=== PATIENT | male | born 1950 | race African-American/Black ===

== ENCOUNTER 2017-01-29 15:33 | Emergency (ER) | payer MEDICAID ==
[~2017-01-29] VITALS: Ht 180.3 cm; Wt 63.0 kg
[~2017-01-29 15:33] MED LIST: ALLO100T PO; AMLO5TAB4 PO; CARV25TA47 PO; CLON0.1T PO; Folic Acid PO; METH40TA12 PO; Multivitamins,Ther W-Minerals PO; OMEP20CA10 PO
[2017-01-29] MEDS ORDERED: MORPHINE SULFATE 4 MG/ML CPJ (NOT FOR IM USE) IV STA (15:53)
[2017-01-29] MEDS ORDERED: SODIUM CHLORIDE 0.9% 1,000 ML IV ONE (15:53)
[2017-01-29] MEDS ORDERED: FAMOTIDINE 20MG/2ML VIAL IV STA (15:53)
[2017-01-29] MEDS ORDERED: VISCOUS LIDOCAINE 2% 15 ML UDC PO STA (15:53)
[2017-01-29] MEDS ORDERED: ONDANSETRON HCL 4MG/2ML VIAL IV STA (15:53)
[2017-01-29] MEDS ORDERED: MAGNESIUM/ALUMINUM HYDROXIDE/SIMETHICONE 30ML UDC PO STA (15:53)
[2017-01-29 16:20] LABS: BASOPHILS % 1.2 % (0.0-2.0); DIFFERENTIAL COMMENT 0; EOSINOPHILS % 0.3 % (0.0-5.0); HEMATOCRIT. 30.8 % (42.0-52.0); HEMOGLOBIN. 10.2 g/dL (14.0-18.0); LYMPHOCYTES % 47.6 % (20.0-50.0); MEAN CORPUSCULAR HEMOGLOBIN 33.7 pg (28.0-32.0); MEAN CORPUSCULAR HGB CONC 33.2 g/dL (31.0-37.0); MEAN CORPUSCULAR VOLUME 101.4 fL (80.0-94.0); MEAN PLATELET VOLUME 9.2 fl (7.4-10.4); NEUTROPHILS % 39.9 % (40.0-76.0); PLATELET 141 x1000/uL (130-400); RED BLOOD CELL COUNT 3.04 mill/uL (4.7-6.1); RED CELL DISTRIBUTION WIDTH 13.3 % (11.6-14.6); WHITE BLOOD COUNT 3.9 x1000/uL (4.5-11.0)
[2017-01-29 16:32] LABS: ALANINE AMINOTRANSFERASE 75 IU/L (13-61); ALBUMIN 2.9 g/dL (3.4-5.0); ANION GAP 17; CALCIUM 7.6 mg/dL (8.5-10.1); CARBON DIOXIDE 18 mEq/L (21-32); CHLORIDE 101 mEq/L (98-107); ETHANOL BLOOD 218 mg/dL; INDEX HEMOLYSI 1 (1-3); INDEX ICTERIC 1 (1-4); INDEX LIPEMIC 1 (1-3); LIPASE 222 IU/L (73-393); UREA NITROGEN BLOOD 48 mg/dL (7-21); eGFR 28 mL/min (>60)
[2017-01-29 17:45] LABS: CLARITY URINE CLEAR (CLEAR); COLOR URINE YELLOW (YELLOW); GLUCOSE URINE NEGATIVE (NEGATIVE); KETONES URINE NEGATIVE (NEGATIVE); LEUKOCYTE ESTERASE URINE NEGATIVE (NEGATIVE); NITRITE URINE NEGATIVE (NEGATIVE); OCCULT BLOOD URINE TRACE (NEGATIVE); PROTEIN URINE 1+ (NEGATIVE); SPECIFIC GRAVITY URINE 1.008 (1.005-1.030); UROBILINOGEN URINE 0.2 E.U./dL (0.2-1.0)
[2017-01-29 17:53] LABS: *AMPHETAMINES SCREEN URINE NEGATIVE (NEGATIVE); *BARBITURATES SCREEN URINE NEGATIVE (NEGATIVE); *BENZODIAZEPINES SCREEN URINE NEGATIVE (NEGATIVE); *COCAINE SCREEN URINE NEGATIVE (NEGATIVE); CANNABINOID URINE SCREEN PRESUMTIVE POSITIVE (NEGATIVE); ECSTASY MDMA SCREEN URINE NEGATIVE (NEGATIVE); METHADONE URINE SCREEN PRESUMTIVE POSITIVE (NEGATIVE); OPIATES URINE SCREEN NEGATIVE (NEGATIVE); PHENCYCLIDINE URINE SCREEN NEGATIVE (NEGATIVE)
[2017-01-29 18:09] LABS: BACTERIA URINE TRACE; RBC URINE 0-2 /hpf (0-2); SQUAMOUS EPITHELIAL CELL URINE RARE /lpf (RARE/1+); WBC URINE NONE SEEN /hpf (0-2)
[2017-01-29 19:17] VITALS: BP 135/77
== END 2017-01-29 19:18 | disposition home or self-care (01) ==
LOC: ER 17:24
DX: R10.13 Epigastric pain (principal); R11.2 Nausea with vomiting, unspecified; F10.20 Alcohol dependence, uncomplicated; I10 Essential (primary) hypertension; F17.200 Nicotine dependence, unspecified, uncomplicated; Z87.19 Personal history of other diseases of the digestive system
CPT/HCPCS: 36415; 71010; 74176; 80053; 80305; 81001; 83690; 85025; 93005; 94640; 96361; 96374; 96375; 99285; G0482; J2270; J2405; J3490; J7030; Z7610

== ENCOUNTER 2017-03-10 10:39 | Emergency (ER) | payer MEDICAID ==
[~2017-03-10] VITALS: Ht 170.2 cm; Wt 64.0 kg
[~2017-03-10 10:39] MED LIST changes: -AMLO5TAB4 PO; -CARV25TA47 PO; -CLON0.1T PO; +CLON0.1T14 PO; +COR25 PO; +HYDR-4135 PO; +NIFE60TA64 PO
[2017-03-10] MEDS ORDERED: HYDROCODONE/ACETAMINOPHEN 5/325MG TABLET PO ONE (13:30)
[2017-03-10] MEDS ORDERED: INDOMETHACIN 50MG CAPSULE PO ONE (13:30)
[2017-03-10 14:21] LABS: ALBUMIN 2.2 g/dL (3.4-5.0); ANION GAP 17; CALCIUM 7.9 mg/dL (8.5-10.1); CARBON DIOXIDE 22 mEq/L (21-32); CHLORIDE 102 mEq/L (98-107); INDEX HEMOLYSI 1 (1-3); INDEX ICTERIC 1 (1-4); INDEX LIPEMIC 1 (1-3)
[2017-03-10 14:25] LABS: ALANINE AMINOTRANSFERASE 52 IU/L (13-61); UREA NITROGEN BLOOD 18 mg/dL (7-21); URIC ACID 5.2 mg/dL (2.6-7.2)
[2017-03-10 14:26] LABS: eGFR 43 mL/min (>60)
[2017-03-10 14:27] LABS: BASOPHILS % 0.4 % (0.0-2.0); HEMATOCRIT. 35.3 % (42.0-52.0); HEMOGLOBIN. 12.1 g/dL (14.0-18.0); INR 1.3; LYMPHOCYTES % 14.5 % (20.0-50.0); MEAN CORPUSCULAR HEMOGLOBIN 33.2 pg (28.0-32.0); MEAN CORPUSCULAR HGB CONC 34.3 g/dL (31.0-37.0); MEAN CORPUSCULAR VOLUME 96.8 fL (80.0-94.0); MEAN PLATELET VOLUME 9.6 fl (7.4-10.4); MONOCYTES % 13.4 % (2.0-8.0); NEUTROPHILS % 71.7 % (40.0-76.0); PARTIAL THROMBOPLASTIN TIME 27.6 sec (24.0-34.0); PLATELET 182 x1000/uL (130-400); PROTHROMBIN TIME 13.1 sec; RED BLOOD CELL COUNT 3.65 mill/uL (4.7-6.1); RED CELL DISTRIBUTION WIDTH 15.4 % (11.6-14.6)
[2017-03-10 14:29] LABS: NT PRO B-TYPE NATRIURETIC PEP 4062 pg/mL (5-125)
[2017-03-10 18:35] VITALS: BP 168/97
== END 2017-03-10 18:37 | disposition home or self-care (01) ==
LOC: ER 11:04
DX: M10.9 Gout, unspecified (principal); B19.20 Unspecified viral hepatitis C without hepatic coma; Z79.899 Other long term (current) drug therapy; I10 Essential (primary) hypertension; F17.200 Nicotine dependence, unspecified, uncomplicated
CPT/HCPCS: 36415; 71010; 80053; 83880; 84550; 85025; 85610; 85730; 93005; 93970; 99285; Z7610

== ENCOUNTER 2017-07-09 17:42 | Inpatient (IN) | payer MEDICAID ==
[~2017-07-09] VITALS: Ht 170.2 cm; Wt 54.4 kg
[~2017-07-09 17:42] MED LIST changes: +CLON0.1T PO; -CLON0.1T14 PO
[2017-07-09 19:05] LABS: BASOPHILS % 1.2 % (0.0-2.0); EOSINOPHILS % 0.2 % (0.0-5.0); HEMATOCRIT. 28.4 % (42.0-52.0); HEMOGLOBIN. 9.4 g/dL (14.0-18.0); LYMPHOCYTES % 40.6 % (20.0-50.0); MEAN CORPUSCULAR HEMOGLOBIN 33.9 pg (28.0-32.0); MEAN CORPUSCULAR VOLUME 102.5 fL (80.0-94.0); MEAN PLATELET VOLUME 8.8 fl (7.4-10.4); MONOCYTES % 9.1 % (2.0-8.0); NEUTROPHILS % 48.9 % (40.0-76.0); PLATELET 175 x1000/uL (130-400); RED BLOOD CELL COUNT 2.77 mill/uL (4.7-6.1); RED CELL DISTRIBUTION WIDTH 14.5 % (11.6-14.6)
[2017-07-09] MEDS ORDERED: ASPIRIN 325MG EC TABLET PO ONE (19:15)
[2017-07-09 19:16] LABS: CARBON DIOXIDE 19 mEq/L (21-32); CHLORIDE 107 mEq/L (98-107); INR 1.1; PROTHROMBIN TIME 11.5 sec (9.4-11.6); TROPONIN I < 0.02 ng/mL (0.00-0.04)
[2017-07-09] MEDS ORDERED: NITROGLYCERIN OINT 1GM/INCH UDPKT TD ONE (19:30)
[2017-07-09 22:11] VITALS: BP 140/88
[2017-07-09] MEDS ORDERED: SODIUM CHLORIDE 0.9% 1,000 ML IV SCH (23:10)
[2017-07-09] MEDS ORDERED: IPRATROPIUM/ALBUTEROL 0.5-3(2.5)MG/3ML NEB INH PRN (23:15)
[2017-07-09] MEDS ORDERED: MAGNESIUM/ALUMINUM HYDROXIDE/SIMETHICONE 30ML UDC PO PRN (23:15)
[2017-07-09] MEDS ORDERED: ACETAMINOPHEN 325MG TABLET PO PRN (23:15)
[2017-07-10 00:15] VITALS: BP 160/99
[2017-07-10] MEDS: CLONIDINE 0.1MG TABLET PO PRN (00:19)
[2017-07-10 04:30] VITALS: BP 122/68
[2017-07-10 06:22] LABS: BASOPHILS % 1.1 % (0.0-2.0); EOSINOPHILS % 0.6 % (0.0-5.0); HEMATOCRIT. 26.9 % (42.0-52.0); HEMOGLOBIN. 8.9 g/dL (14.0-18.0); LYMPHOCYTES % 53.3 % (20.0-50.0); MEAN CORPUSCULAR HEMOGLOBIN 33.9 pg (28.0-32.0); MEAN CORPUSCULAR VOLUME 102.2 fL (80.0-94.0); MEAN PLATELET VOLUME 9.5 fl (7.4-10.4); MONOCYTES % 10.4 % (2.0-8.0); NEUTROPHILS % 34.6 % (40.0-76.0); PLATELET 175 x1000/uL (130-400); RED BLOOD CELL COUNT 2.63 mill/uL (4.7-6.1); RED CELL DISTRIBUTION WIDTH 14.4 % (11.6-14.6)
[2017-07-10 07:37] LABS: CREATINE KINASE 48 IU/L (39-308); CREATINE KINASE MB FRACTION < 0.5 ng/mL (0.5-3.6); HDL CHOLESTEROL 43 mg/dL (40-59); LDL CHOLESTEROL 54 mg/dL (5-100); TROPONIN I < 0.02 ng/mL (0.00-0.04)
[2017-07-10 08:00] VITALS: BP 159/89
[2017-07-10] MEDS: FOLIC ACID 1MG TABLET PO SCH (09:26)
[2017-07-10] MEDS: MULTIVITAMINS,THER W-MINERALS TABLET PO SCH (09:26)
[2017-07-10] MEDS: THIAMINE HCL 100MG TABLET PO SCH (09:26)
[2017-07-10] MEDS: METHADONE HCL 10MG TABLET PO SCH (10:39)
[2017-07-10 11:18] LABS: AMYLASE 199 IU/L (25-115)
[2017-07-10 11:35] LABS: CLARITY URINE CLEAR (CLEAR); COLOR URINE YELLOW (YELLOW); GLUCOSE URINE NEGATIVE (NEGATIVE); KETONES URINE NEGATIVE (NEGATIVE); LEUKOCYTE ESTERASE URINE NEGATIVE (NEGATIVE); NITRITE URINE NEGATIVE (NEGATIVE); OCCULT BLOOD URINE TRACE (NEGATIVE); PROTEIN URINE 2+ (NEGATIVE); SPECIFIC GRAVITY URINE 1.014 (1.005-1.030); UROBILINOGEN URINE 0.2 E.U./dL (0.2-1.0)
[2017-07-10] MEDS: DEXT 5%/0.9% NACL 1,000 ML IV SCH ×2 (12:00→21:32)
[2017-07-10] MEDS: PANTOPRAZOLE SODIUM 40 MG/VIAL IV SCH (12:00)
[2017-07-10 12:04] VITALS: BP 153/88
[2017-07-10 12:14] LABS: *AMPHETAMINES SCREEN URINE NEGATIVE (NEGATIVE); *BARBITURATES SCREEN URINE NEGATIVE (NEGATIVE); *BENZODIAZEPINES SCREEN URINE NEGATIVE (NEGATIVE); *COCAINE SCREEN URINE NEGATIVE (NEGATIVE); CANNABINOID URINE SCREEN PRESUMTIVE POSITIVE (NEGATIVE); METHADONE URINE SCREEN PRESUMTIVE POSITIVE (NEGATIVE); OPIATES URINE SCREEN NEGATIVE (NEGATIVE); PHENCYCLIDINE URINE SCREEN NEGATIVE (NEGATIVE)
[2017-07-10] MEDS: NIFEDIPINE XL 30MG TAB PO SCH ×2 (13:38→21:00)
[2017-07-10 16:00] VITALS: BP 147/79
[2017-07-10 16:24] LABS: CREATINE KINASE 48 IU/L (39-308); CREATINE KINASE MB FRACTION 0.6 ng/mL (0.5-3.6); TROPONIN I < 0.02 ng/mL (0.00-0.04)
[2017-07-10] MEDS: HYDRALAZINE HCL 50MG TABLET PO SCH ×2 (18:01→21:32)
[2017-07-10 20:09] VITALS: BP 112/71
[2017-07-10] MEDS: HYDROCODONE/ACETAMINOPHEN 5/325MG TABLET PO PRN (21:30)
[2017-07-11 00:46] VITALS: BP 111/78
[2017-07-11 04:00] VITALS: BP 148/87
[2017-07-11] MEDS: HYDRALAZINE HCL 50MG TABLET PO SCH ×3 (06:00→22:12)
[2017-07-11 07:52] LABS: EOSINOPHILS % 0.4 % (0.0-5.0); HEMATOCRIT. 32.7 % (42.0-52.0); HEMOGLOBIN. 11.2 g/dL (14.0-18.0); LYMPHOCYTES % 50.3 % (20.0-50.0); MEAN CORPUSCULAR HEMOGLOBIN 34.6 pg (28.0-32.0); MEAN CORPUSCULAR VOLUME 101.3 fL (80.0-94.0); MEAN PLATELET VOLUME 9.9 fl (7.4-10.4); MONOCYTES % 6.8 % (2.0-8.0); NEUTROPHILS % 41.5 % (40.0-76.0); PLATELET 191 x1000/uL (130-400); RED BLOOD CELL COUNT 3.23 mill/uL (4.7-6.1); RED CELL DISTRIBUTION WIDTH 14.4 % (11.6-14.6)
[2017-07-11 08:00] VITALS: BP 128/67
[2017-07-11] MEDS: DEXT 5%/0.9% NACL 1,000 ML IV SCH ×3 (08:00→18:00)
[2017-07-11 08:12] LABS: CARBON DIOXIDE 23 mEq/L (21-32); CHLORIDE 105 mEq/L (98-107)
[2017-07-11 08:22] LABS: HDL CHOLESTEROL 51 mg/dL (40-59); LDL CHOLESTEROL 76 mg/dL (5-100); TROPONIN I < 0.02 ng/mL (0.00-0.04)
[2017-07-11] MEDS ORDERED: LIDOCAINE HCL 1% 20ML VIAL (Pyxis) INJ ONE (08:40)
[2017-07-11] MEDS ORDERED: SODIUM BICARBONATE 4% (2.4MEQ) 5ML VIAL IV ONE (08:40)
[2017-07-11] MEDS: MULTIVITAMINS,THER W-MINERALS TABLET PO SCH (08:53)
[2017-07-11] MEDS: METHADONE HCL 10MG TABLET PO SCH (08:53)
[2017-07-11] MEDS: FOLIC ACID 1MG TABLET PO SCH (08:53)
[2017-07-11] MEDS: THIAMINE HCL 100MG TABLET PO SCH (08:53)
[2017-07-11] MEDS: NIFEDIPINE XL 30MG TAB PO SCH ×2 (08:54→22:23)
[2017-07-11] MEDS: PANTOPRAZOLE SODIUM 40 MG/VIAL IV SCH ×2 (08:58→11:42)
[2017-07-11] MEDS: ONDANSETRON HCL 4MG/2ML VIAL IV PRN ×2 (11:42→16:51)
[2017-07-11 12:00] VITALS: BP 142/78
[2017-07-11 16:00] VITALS: BP 170/86
[2017-07-11 17:40] LABS: TOTAL IRON BINDING CAPACITY 288 ug/dL (250-450)
[2017-07-11 17:58] LABS: FERRITIN 409 ng/mL (22-322)
[2017-07-11 18:10] LABS: VITAMIN B12 SERUM 287 pg/mL (211-911)
[2017-07-11 20:00] VITALS: BP 183/88
[2017-07-11] MEDS: HYDROCODONE/ACETAMINOPHEN 5/325MG TABLET PO PRN (22:09)
[2017-07-12] VITALS: BP 188/89
[2017-07-12] MEDS: CLONIDINE 0.1MG TABLET PO PRN ×2 (01:19→01:33)
[2017-07-12 04:00] VITALS: BP 151/78
[2017-07-12] MEDS: ONDANSETRON HCL 4MG/2ML VIAL IV PRN (04:38)
[2017-07-12] MEDS: DEXT 5%/0.9% NACL 1,000 ML IV SCH ×2 (05:02→08:33)
[2017-07-12] MEDS: HYDRALAZINE HCL 50MG TABLET PO SCH ×2 (05:41→12:28)
[2017-07-12 06:41] LABS: BASOPHILS % 0.3 % (0.0-2.0); EOSINOPHILS % 0.5 % (0.0-5.0); HEMOGLOBIN. 8.7 g/dL (14.0-18.0); LYMPHOCYTES % 39.7 % (20.0-50.0); MEAN CORPUSCULAR HEMOGLOBIN 34.3 pg (28.0-32.0); MEAN CORPUSCULAR VOLUME 102.7 fL (80.0-94.0); MEAN PLATELET VOLUME 9.8 fl (7.4-10.4); MONOCYTES % 10.7 % (2.0-8.0); NEUTROPHILS % 48.8 % (40.0-76.0); PLATELET 141 x1000/uL (130-400); RED BLOOD CELL COUNT 2.54 mill/uL (4.7-6.1); RED CELL DISTRIBUTION WIDTH 14.4 % (11.6-14.6)
[2017-07-12 07:49] LABS: CARBON DIOXIDE 24 mEq/L (21-32)
[2017-07-12 08:00] VITALS: BP 134/73
[2017-07-12] MEDS: MULTIVITAMINS,THER W-MINERALS TABLET PO SCH (08:31)
[2017-07-12] MEDS: PANTOPRAZOLE SODIUM 40 MG/VIAL IV SCH (08:31)
[2017-07-12] MEDS: FOLIC ACID 1MG TABLET PO SCH (08:31)
[2017-07-12] MEDS: THIAMINE HCL 100MG TABLET PO SCH (08:32)
[2017-07-12] MEDS: NIFEDIPINE XL 30MG TAB PO SCH (08:32)
[2017-07-12 08:33] VITALS: BP 134/73
[2017-07-12] MEDS: METHADONE HCL 10MG TABLET PO SCH (08:33)
[2017-07-12 08:41] LABS: CHLORIDE 109 mEq/L (98-107)
[2017-07-12] MEDS ORDERED: POTASSIUM CHLORIDE 20MEQ TABLET SR PO NR (12:00)
== END 2017-07-12 14:15 | disposition home or self-care (01) | DRG 282 ==
LOC: ER 17:42 → 6WST 19:39 → EDBEDREQTM 19:43 → EDBEDREQ 19:43 → ENRESERV 19:53
PROVIDERS: ADMIT Internal Medicine; ATTEND Internal Medicine
PROC: 02HV33Z Insertion of Infusion Device into Superior Vena Cava, Percutaneous Approach (ICD-10-PCS; principal; 2017-07-11)
PROC: B5181ZA Fluoroscopy of Superior Vena Cava using Low Osmolar Contrast, Guidance (ICD-10-PCS; 2017-07-11)
PROC: B548ZZA Ultrasonography of Superior Vena Cava, Guidance (ICD-10-PCS; 2017-07-11)
DX: K85.20 Alcohol induced acute pancreatitis without necrosis or infection (principal); I21.4 Non-ST elevation (NSTEMI) myocardial infarction; I50.33 Acute on chronic diastolic (congestive) heart failure; N17.9 Acute kidney failure, unspecified; F11.20 Opioid dependence, uncomplicated; I24.9 Acute ischemic heart disease, unspecified; K86.0 Alcohol-induced chronic pancreatitis; N18.9 Chronic kidney disease, unspecified; F10.10 Alcohol abuse, uncomplicated; R74.0 Nonspecific elevation of levels of transaminase and lactic acid dehydrogenase [LDH]; B18.2 Chronic viral hepatitis C; D53.9 Nutritional anemia, unspecified; I13.0 Hypertensive heart and chronic kidney disease with heart failure and stage 1 through stage 4 chronic kidney disease, or unspecified chronic kidney disease; F17.210 Nicotine dependence, cigarettes, uncomplicated; K29.70 Gastritis, unspecified, without bleeding; Y90.9 Presence of alcohol in blood, level not specified; M10.9 Gout, unspecified; K58.9 Irritable bowel syndrome, unspecified; K57.90 Diverticulosis of intestine, part unspecified, without perforation or abscess without bleeding; F12.90 Cannabis use, unspecified, uncomplicated; D63.1 Anemia in chronic kidney disease; D72.819 Decreased white blood cell count, unspecified; Z79.899 Other long term (current) drug therapy; Z82.49 Family history of ischemic heart disease and other diseases of the circulatory system
CPT/HCPCS: 36415; 36569; 71010; 76937; 77001; 80053; 80061; 80305; 81001; 82150; 82550; 82553; 82607; 82728; 83540; 83550; 83690; 83735; 83880; 84443; 84484; 85025; 85044; 85379; 85610; 93005; 93306; 93970; 99285; C1725; C1893; C9113; J2405; J3490; J7042; J7060

== ENCOUNTER 2017-08-09 08:12 | Inpatient (IN) | payer MEDICAID ==
[~2017-08-09] VITALS: Ht 162.6 cm; Wt 52.2 kg
[2017-08-09] MEDS ORDERED: ONDANSETRON HCL 4MG/2ML VIAL IV STA (08:34)
[2017-08-09] MEDS ORDERED: MORPHINE SULFATE 4 MG/ML CPJ (NOT FOR IM USE) IV STA (08:34)
[2017-08-09] MEDS ORDERED: FAMOTIDINE 20MG/2ML VIAL IV STA (08:34)
[2017-08-09] MEDS ORDERED: SODIUM CHLORIDE 0.9% 1,000 ML IV ONE ×2 (08:34→10:47)
[2017-08-09 09:41] LABS: CARBON DIOXIDE 23 mEq/L (21-32); CHLORIDE 104 mEq/L (98-107); ETHANOL BLOOD < 10 mg/dL
[2017-08-09 09:46] LABS: TROPONIN I < 0.02 ng/mL (0.00-0.04)
[2017-08-09 10:16] LABS: BASOPHILS % 0.7 % (0.0-2.0); EOSINOPHILS % 0.2 % (0.0-5.0); HEMATOCRIT. 36.8 % (42.0-52.0); HEMOGLOBIN. 12.6 g/dL (14.0-18.0); LYMPHOCYTES % 33.3 % (20.0-50.0); MEAN CORPUSCULAR HEMOGLOBIN 33.9 pg (28.0-32.0); MEAN CORPUSCULAR VOLUME 99.5 fL (80.0-94.0); MEAN PLATELET VOLUME 9.9 fl (7.4-10.4); MONOCYTES % 9.1 % (2.0-8.0); NEUTROPHILS % 56.7 % (40.0-76.0); PLATELET 146 x1000/uL (130-400); RED CELL DISTRIBUTION WIDTH 13.4 % (11.6-14.6)
[2017-08-09 10:41] LABS: INR 1.2; PROTHROMBIN TIME 12.4 sec (9.4-11.6)
[2017-08-09] MEDS ORDERED: CLONIDINE 0.2MG TABLET PO ONE (11:15)
[2017-08-09 11:29] LABS: CLARITY URINE CLEAR (CLEAR); COLOR URINE YELLOW (YELLOW); GLUCOSE URINE NEGATIVE (NEGATIVE); KETONES URINE NEGATIVE (NEGATIVE); LEUKOCYTE ESTERASE URINE NEGATIVE (NEGATIVE); NITRITE URINE NEGATIVE (NEGATIVE); OCCULT BLOOD URINE 1+ (NEGATIVE); PROTEIN URINE 2+ (NEGATIVE); SPECIFIC GRAVITY URINE 1.014 (1.005-1.030); UROBILINOGEN URINE 0.2 E.U./dL (0.2-1.0)
[2017-08-09 11:59] LABS: *AMPHETAMINES SCREEN URINE NEGATIVE (NEGATIVE); *BARBITURATES SCREEN URINE NEGATIVE (NEGATIVE); *BENZODIAZEPINES SCREEN URINE NEGATIVE (NEGATIVE); *COCAINE SCREEN URINE NEGATIVE (NEGATIVE); CANNABINOID URINE SCREEN PRESUMTIVE POSITIVE (NEGATIVE); METHADONE URINE SCREEN PRESUMTIVE POSITIVE (NEGATIVE); OPIATES URINE SCREEN PRESUMTIVE POSITIVE (NEGATIVE); PHENCYCLIDINE URINE SCREEN NEGATIVE (NEGATIVE)
[2017-08-09] MEDS ORDERED: HYDRALAZINE HCL 100MG TABLET PO ONE (13:15)
[2017-08-09 14:45] VITALS: BP 186/101
[2017-08-09 14:57] VITALS: BP 186/101
[2017-08-09 16:00] VITALS: BP_SYST 124; BP_SYST 165; BP_DIAS 71; BP_DIAS 98
[2017-08-09] MEDS ORDERED: CLONIDINE 0.1MG TABLET PO PRN (16:00)
[2017-08-09] MEDS ORDERED: IPRATROPIUM/ALBUTEROL 0.5-3(2.5)MG/3ML NEB INH PRN (16:00)
[2017-08-09] MEDS: ALLOPURINOL 100 MG TABLET PO SCH ×2 (16:24→16:55)
[2017-08-09] MEDS: OMEPRAZOLE 20MG CAPSULE EXTENDED RELEASE PO SCH ×2 (16:24→16:54)
[2017-08-09] MEDS: CARVEDILOL 25MG TABLET PO SCH ×2 (16:24→16:55)
[2017-08-09] MEDS: METHADONE HCL 10MG TABLET PO SCH (16:54)
[2017-08-09] MEDS ORDERED: MVI, ADULT NO.1 10 ML, FOLIC ACID 1 MG, THIAMINE HCL 100 MG in SODIUM CHLORIDE 0.9% 1,0... IV NR ×4 (18:00)
[2017-08-09 20:00] VITALS: BP 153/89
[2017-08-09] MEDS: HYDRALAZINE HCL 50MG TABLET PO SCH (21:27)
[2017-08-09] MEDS: NIFEDIPINE XL 60MG TAB PO SCH (21:27)
[2017-08-09] MEDS: CLONIDINE 0.1MG TABLET PO SCH (21:27)
[2017-08-09 23:48] LABS: TROPONIN I 0.04 ng/mL (0.00-0.04)
[2017-08-10 04:00] VITALS: BP 109/70
[2017-08-10] MEDS: OMEPRAZOLE 20MG CAPSULE EXTENDED RELEASE PO SCH (06:30)
[2017-08-10] MEDS: HYDRALAZINE HCL 50MG TABLET PO SCH ×3 (06:31→22:00)
[2017-08-10 06:53] LABS: CARBON DIOXIDE 18 mEq/L (21-32); CHLORIDE 113 mEq/L (98-107); LDL CHOLESTEROL 46 mg/dL (5-100)
[2017-08-10 06:59] LABS: CREATINE KINASE 71 IU/L (39-308); HDL CHOLESTEROL 42 mg/dL (40-59); TROPONIN I 0.03 ng/mL (0.00-0.04)
[2017-08-10 07:29] LABS: BASOPHILS % 0.5 % (0.0-2.0); EOSINOPHILS % 0.5 % (0.0-5.0); HEMATOCRIT. 30.2 % (42.0-52.0); HEMOGLOBIN. 10.1 g/dL (14.0-18.0); LYMPHOCYTES % 36.2 % (20.0-50.0); MEAN CORPUSCULAR HEMOGLOBIN 33.8 pg (28.0-32.0); MEAN CORPUSCULAR VOLUME 100.6 fL (80.0-94.0); MONOCYTES % 11.3 % (2.0-8.0); NEUTROPHILS % 51.5 % (40.0-76.0); PLATELET 119 x1000/uL (130-400); RED BLOOD CELL COUNT 3.01 mill/uL (4.7-6.1); RED CELL DISTRIBUTION WIDTH 13.3 % (11.6-14.6)
[2017-08-10 08:12] VITALS: BP 120/73
[2017-08-10] MEDS: METHADONE HCL 10MG TABLET PO SCH (09:25)
[2017-08-10] MEDS: CLONIDINE 0.1MG TABLET PO SCH ×2 (09:34→20:44)
[2017-08-10] MEDS: ALLOPURINOL 100 MG TABLET PO SCH (09:34)
[2017-08-10] MEDS: NIFEDIPINE XL 60MG TAB PO SCH ×2 (09:35→20:45)
[2017-08-10] MEDS: CARVEDILOL 25MG TABLET PO SCH (09:35)
[2017-08-10 11:52] VITALS: BP 121/69
[2017-08-10] MEDS: MORPHINE SULFATE 4 MG/ML CPJ (NOT FOR IM USE) IV PRN ×2 (15:20→20:45)
[2017-08-10 16:09] VITALS: BP 121/73
[2017-08-10] MEDS: DEXT 5%/0.45% NACL KCL 20MEQ/L 1,000 ML IV SCH (16:29)
[2017-08-10 20:00] VITALS: BP 132/72
[2017-08-11] VITALS (7 sets, daily range): BP systolic 130–165; BP diastolic 74–89
[2017-08-11] MEDS: MORPHINE SULFATE 4 MG/ML CPJ (NOT FOR IM USE) IV PRN ×3 (01:29→16:33)
[2017-08-11] MEDS: DEXT 5%/0.45% NACL KCL 20MEQ/L 1,000 ML IV SCH ×3 (01:32→18:49)
[2017-08-11] MEDS: HYDRALAZINE HCL 50MG TABLET PO SCH ×2 (06:51→16:33)
[2017-08-11] MEDS: OMEPRAZOLE 20MG CAPSULE EXTENDED RELEASE PO SCH (06:51)
[2017-08-11] MEDS: ONDANSETRON HCL 4MG/2ML VIAL IV PRN (08:12)
[2017-08-11] MEDS: ALLOPURINOL 100 MG TABLET PO SCH (09:23)
[2017-08-11] MEDS: METHADONE HCL 10MG TABLET PO SCH (09:23)
[2017-08-11] MEDS: NIFEDIPINE XL 60MG TAB PO SCH ×2 (09:24→21:14)
[2017-08-11] MEDS: CARVEDILOL 25MG TABLET PO SCH (09:24)
[2017-08-11] MEDS: CLONIDINE 0.1MG TABLET PO SCH ×2 (09:24→21:13)
[2017-08-11 10:54] LABS: BASOPHILS % 0.4 % (0.0-2.0); EOSINOPHILS % 0.2 % (0.0-5.0); HEMATOCRIT. 31.4 % (42.0-52.0); HEMOGLOBIN. 10.5 g/dL (14.0-18.0); LYMPHOCYTES % 21.2 % (20.0-50.0); MEAN CORPUSCULAR HEMOGLOBIN 33.4 pg (28.0-32.0); MEAN CORPUSCULAR VOLUME 100.1 fL (80.0-94.0); MEAN PLATELET VOLUME 9.8 fl (7.4-10.4); MONOCYTES % 7.3 % (2.0-8.0); NEUTROPHILS % 70.9 % (40.0-76.0); PLATELET 122 x1000/uL (130-400); RED BLOOD CELL COUNT 3.14 mill/uL (4.7-6.1); RED CELL DISTRIBUTION WIDTH 13.5 % (11.6-14.6)
[2017-08-11 11:18] LABS: CARBON DIOXIDE 22 mEq/L (21-32); CHLORIDE 110 mEq/L (98-107)
[2017-08-12] VITALS: BP 137/81
[2017-08-12] MEDS: MORPHINE SULFATE 4 MG/ML CPJ (NOT FOR IM USE) IV PRN ×3 (03:44→21:52)
[2017-08-12] MEDS: HYDRALAZINE HCL 50MG TABLET PO SCH ×4 (03:57→21:51)
[2017-08-12] MEDS: DEXT 5%/0.45% NACL KCL 20MEQ/L 1,000 ML IV SCH ×3 (03:58→15:41)
[2017-08-12 04:03] VITALS: BP 134/78
[2017-08-12] MEDS: OMEPRAZOLE 20MG CAPSULE EXTENDED RELEASE PO SCH (06:34)
[2017-08-12 06:47] LABS: BASOPHILS % 0.5 % (0.0-2.0); EOSINOPHILS % 0.6 % (0.0-5.0); HEMATOCRIT. 29.8 % (42.0-52.0); LYMPHOCYTES % 41.1 % (20.0-50.0); MEAN CORPUSCULAR HEMOGLOBIN 33.3 pg (28.0-32.0); MEAN CORPUSCULAR VOLUME 99.9 fL (80.0-94.0); MEAN PLATELET VOLUME 10.1 fl (7.4-10.4); MONOCYTES % 10.3 % (2.0-8.0); NEUTROPHILS % 47.5 % (40.0-76.0); PLATELET 122 x1000/uL (130-400); RED BLOOD CELL COUNT 2.99 mill/uL (4.7-6.1); RED CELL DISTRIBUTION WIDTH 13.7 % (11.6-14.6)
[2017-08-12] MEDS ORDERED: HYDRALAZINE 20MG/ML VIAL IV PRN (07:15)
[2017-08-12 08:00] VITALS: BP 147/54
[2017-08-12] MEDS: CLONIDINE 0.1MG TABLET PO SCH ×2 (09:19→21:50)
[2017-08-12] MEDS: METHADONE HCL 10MG TABLET PO SCH (09:19)
[2017-08-12] MEDS: CARVEDILOL 25MG TABLET PO SCH (09:20)
[2017-08-12] MEDS: ALLOPURINOL 100 MG TABLET PO SCH (09:20)
[2017-08-12] MEDS: NIFEDIPINE XL 60MG TAB PO SCH ×2 (09:20→21:50)
[2017-08-12] MEDS: ONDANSETRON HCL 4MG/2ML VIAL IV PRN (15:47)
[2017-08-12 20:00] VITALS: BP 157/84
[2017-08-12] MEDS ORDERED: LACTULOSE 20G/30ML UDC PO NR (20:15)
[2017-08-12] MEDS ORDERED: LACTULOSE 20G/30ML UDC PO PRN (21:00)
[2017-08-13] VITALS: BP 139/73
[2017-08-13] MEDS: DEXT 5%/0.45% NACL KCL 20MEQ/L 1,000 ML IV SCH (01:22)
[2017-08-13 04:00] VITALS: BP 129/73
[2017-08-13] MEDS: HYDRALAZINE HCL 50MG TABLET PO SCH ×3 (06:30→23:05)
[2017-08-13] MEDS ORDERED: SORBITOL 70% SOLN 30ML PO NR ×2 (07:30→11:30)
[2017-08-13 08:00] VITALS: BP 133/79
[2017-08-13] MEDS: FAMOTIDINE 20MG TABLET PO SCH (08:38)
[2017-08-13] MEDS: NIFEDIPINE XL 60MG TAB PO SCH ×2 (08:38→20:08)
[2017-08-13] MEDS: ALLOPURINOL 100 MG TABLET PO SCH (08:39)
[2017-08-13] MEDS: CARVEDILOL 25MG TABLET PO SCH (08:39)
[2017-08-13] MEDS: CLONIDINE 0.1MG TABLET PO SCH ×2 (08:39→20:08)
[2017-08-13] MEDS: METHADONE HCL 10MG TABLET PO SCH (08:40)
[2017-08-13 12:00] VITALS: BP 125/74
[2017-08-13] MEDS ORDERED: HYDR-4135 PO (12:32)
[2017-08-13] MEDS ORDERED: CLON0.1T PO (12:32)
[2017-08-13] MEDS ORDERED: COR25 PO (12:32)
[2017-08-13] MEDS ORDERED: ALLO100T PO (12:32)
[2017-08-13] MEDS: ONDANSETRON HCL 4MG/2ML VIAL IV PRN (14:43)
[2017-08-13] MEDS: MORPHINE SULFATE 4 MG/ML CPJ (NOT FOR IM USE) IV PRN ×2 (14:44→20:14)
[2017-08-13 16:00] VITALS: BP 152/82
[2017-08-13 20:00] VITALS: BP 185/97
[2017-08-14] VITALS: BP 165/85
[2017-08-14] MEDS: DEXT 5%/0.45% NACL KCL 20MEQ/L 1,000 ML IV SCH (00:31)
[2017-08-14 04:00] VITALS: BP 147/83
[2017-08-14 06:24] LABS: BASOPHILS % 0.7 % (0.0-2.0); HEMATOCRIT. 27.3 % (42.0-52.0); HEMOGLOBIN. 9.1 g/dL (14.0-18.0); LYMPHOCYTES % 48.1 % (20.0-50.0); MEAN CORPUSCULAR HEMOGLOBIN 33.6 pg (28.0-32.0); MEAN CORPUSCULAR VOLUME 100.3 fL (80.0-94.0); MEAN PLATELET VOLUME 10.2 fl (7.4-10.4); MONOCYTES % 11.2 % (2.0-8.0); PLATELET 120 x1000/uL (130-400); RED BLOOD CELL COUNT 2.72 mill/uL (4.7-6.1); RED CELL DISTRIBUTION WIDTH 13.5 % (11.6-14.6)
[2017-08-14] MEDS: HYDRALAZINE HCL 50MG TABLET PO SCH ×3 (06:55→22:25)
[2017-08-14 08:00] VITALS: BP_SYST 128; BP_SYST 148; BP_DIAS 70; BP_DIAS 83
[2017-08-14] MEDS: METHADONE HCL 10MG TABLET PO SCH (09:11)
[2017-08-14] MEDS: NIFEDIPINE XL 60MG TAB PO SCH ×2 (09:11→20:34)
[2017-08-14] MEDS: FAMOTIDINE 20MG TABLET PO SCH (09:12)
[2017-08-14] MEDS: ALLOPURINOL 100 MG TABLET PO SCH (09:48)
[2017-08-14] MEDS: CLONIDINE 0.1MG TABLET PO SCH ×2 (10:50→20:35)
[2017-08-14] MEDS: CARVEDILOL 25MG TABLET PO SCH (11:31)
[2017-08-14 12:04] VITALS: BP 179/80
[2017-08-14] MEDS: HYDROCODONE/ACETAMINOPHEN 10/325MG TABLET PO PRN ×2 (16:39→20:36)
[2017-08-14 20:00] VITALS: BP 169/76
[2017-08-14] MEDS: MORPHINE SULFATE 4 MG/ML CPJ (NOT FOR IM USE) IV PRN (22:25)
[2017-08-15] VITALS (7 sets, daily range): BP systolic 104–135; BP diastolic 59–77
[2017-08-15] MEDS: HYDRALAZINE HCL 50MG TABLET PO SCH ×3 (06:51→23:13)
[2017-08-15] MEDS: MORPHINE SULFATE 4 MG/ML CPJ (NOT FOR IM USE) IV PRN (06:52)
[2017-08-15 08:06] LABS: PHOSPHORUS 3.6 mg/dL (2.5-4.9)
[2017-08-15] MEDS: NIFEDIPINE XL 60MG TAB PO SCH ×2 (09:00→20:49)
[2017-08-15] MEDS: CARVEDILOL 25MG TABLET PO SCH (09:00)
[2017-08-15] MEDS: CLONIDINE 0.1MG TABLET PO SCH ×2 (09:00→20:49)
[2017-08-15] MEDS: FAMOTIDINE 20MG TABLET PO SCH (09:00)
[2017-08-15] MEDS: ALLOPURINOL 100 MG TABLET PO SCH (09:00)
[2017-08-15 09:50] LABS: BASOPHILS % 0.9 % (0.0-2.0); EOSINOPHILS % 0.7 % (0.0-5.0); HEMATOCRIT. 28.9 % (42.0-52.0); HEMOGLOBIN. 9.5 g/dL (14.0-18.0); LYMPHOCYTES % 37.1 % (20.0-50.0); MEAN CORPUSCULAR HEMOGLOBIN 33.6 pg (28.0-32.0); MEAN CORPUSCULAR VOLUME 101.7 fL (80.0-94.0); MONOCYTES % 9.1 % (2.0-8.0); NEUTROPHILS % 52.2 % (40.0-76.0); PLATELET 135 x1000/uL (130-400); RED BLOOD CELL COUNT 2.84 mill/uL (4.7-6.1); RED CELL DISTRIBUTION WIDTH 13.5 % (11.6-14.6)
[2017-08-15] MEDS: METHADONE HCL 10MG TABLET PO SCH (10:16)
[2017-08-15] MEDS ORDERED: SODIUM BICARBONATE 4.2% 5 MEQ/10 ML DISP.SYRIN IV ONE (11:31)
[2017-08-15] MEDS ORDERED: LIDOCAINE HCL 1% 20ML VIAL (Pyxis) INJ ONE (11:31)
[2017-08-15] MEDS ORDERED: MAGNESIUM 4 G PREMIX 100 ML IV NR (12:00)
[2017-08-15 12:16] LABS: INR 1.2; PARTIAL THROMBOPLASTIN TIME 26.2 sec (23.4-31.0); PROTHROMBIN TIME 12.5 sec (9.4-11.6)
[2017-08-15] MEDS ORDERED: SORBITOL 70% SOLN 30ML PO PRN (13:15)
[2017-08-15] MEDS ORDERED: METOCLOPRAMIDE HCL 10MG/2ML VIAL IV PRN (13:15)
[2017-08-15] MEDS: DEXT 5%/0.45% NACL KCL 20MEQ/L 1,000 ML IV SCH (15:51)
[2017-08-15] MEDS: HYDROCODONE/ACETAMINOPHEN 10/325MG TABLET PO PRN ×2 (15:54→23:15)
[2017-08-16] VITALS (7 sets, daily range): BP systolic 121–204; BP diastolic 62–100
[2017-08-16] MEDS: HYDRALAZINE HCL 50MG TABLET PO SCH ×2 (07:02→14:35)
[2017-08-16 08:03] LABS: BASOPHILS % 1.4 % (0.0-2.0); HEMATOCRIT. 27.5 % (42.0-52.0); HEMOGLOBIN. 9.2 g/dL (14.0-18.0); LYMPHOCYTES % 32.8 % (20.0-50.0); MEAN CORPUSCULAR HEMOGLOBIN 33.5 pg (28.0-32.0); MEAN CORPUSCULAR VOLUME 99.9 fL (80.0-94.0); MEAN PLATELET VOLUME 10.3 fl (7.4-10.4); MONOCYTES % 12.8 % (2.0-8.0); PLATELET 137 x1000/uL (130-400); RED BLOOD CELL COUNT 2.76 mill/uL (4.7-6.1); RED CELL DISTRIBUTION WIDTH 13.4 % (11.6-14.6)
[2017-08-16 08:13] LABS: PHOSPHORUS 3.3 mg/dL (2.5-4.9)
[2017-08-16] MEDS: CARVEDILOL 25MG TABLET PO SCH (09:14)
[2017-08-16] MEDS: METHADONE HCL 10MG TABLET PO SCH (09:14)
[2017-08-16] MEDS: CLONIDINE 0.1MG TABLET PO SCH ×2 (09:15→20:49)
[2017-08-16] MEDS: FAMOTIDINE 20MG TABLET PO SCH (09:15)
[2017-08-16] MEDS: ALLOPURINOL 100 MG TABLET PO SCH (09:15)
[2017-08-16] MEDS: NIFEDIPINE XL 60MG TAB PO SCH ×2 (09:18→20:49)
[2017-08-16] MEDS: DEXT 5%/0.45% NACL KCL 20MEQ/L 1,000 ML IV SCH (12:17)
[2017-08-16] MEDS: HYDROCODONE/ACETAMINOPHEN 10/325MG TABLET PO PRN (12:23)
[2017-08-16] MEDS ORDERED: LACTULOSE 20G/30ML UDC PO PRN (13:30)
[2017-08-16] MEDS: POLYETHYLENE GLYCOL 3350 (17GM) 1 DOSE PACK PO SCH (14:34)
[2017-08-16] MEDS: SENNOSIDES/DOCUSATE SOD 8.6/50MG TABLET PO SCH (17:17)
[2017-08-16] MEDS ORDERED: LACTULOSE 20G/30ML UDC PO NR (18:00)
[2017-08-17] VITALS: BP 136/71
[2017-08-17] MEDS: HYDRALAZINE HCL 50MG TABLET PO SCH ×4 (00:21→22:54)
[2017-08-17 04:00] VITALS: BP 107/67
[2017-08-17] MEDS: DEXT 5%/0.45% NACL KCL 20MEQ/L 1,000 ML IV SCH (04:23)
[2017-08-17 06:33] LABS: BASOPHILS % 0.8 % (0.0-2.0); EOSINOPHILS % 1.2 % (0.0-5.0); HEMATOCRIT. 27.7 % (42.0-52.0); HEMOGLOBIN. 9.1 g/dL (14.0-18.0); LYMPHOCYTES % 43.4 % (20.0-50.0); MEAN CORPUSCULAR HEMOGLOBIN 33.6 pg (28.0-32.0); MEAN PLATELET VOLUME 9.8 fl (7.4-10.4); NEUTROPHILS % 41.6 % (40.0-76.0); PLATELET 135 x1000/uL (130-400); RED BLOOD CELL COUNT 2.71 mill/uL (4.7-6.1); RED CELL DISTRIBUTION WIDTH 13.5 % (11.6-14.6)
[2017-08-17 08:00] VITALS: BP 126/73
[2017-08-17] MEDS: NIFEDIPINE XL 60MG TAB PO SCH ×2 (08:55→21:07)
[2017-08-17] MEDS: ALLOPURINOL 100 MG TABLET PO SCH (08:55)
[2017-08-17] MEDS: FAMOTIDINE 20MG TABLET PO SCH (08:55)
[2017-08-17] MEDS: CARVEDILOL 25MG TABLET PO SCH (08:56)
[2017-08-17] MEDS: CITRIC ACID/SODIUM CITRATE SOLN 30ML UDC PO SCH ×3 (08:57→17:44)
[2017-08-17] MEDS: CLONIDINE 0.1MG TABLET PO SCH ×2 (08:57→21:07)
[2017-08-17] MEDS: METHADONE HCL 10MG TABLET PO SCH (08:58)
[2017-08-17] MEDS: SENNOSIDES/DOCUSATE SOD 8.6/50MG TABLET PO SCH ×2 (08:59→17:44)
[2017-08-17] MEDS: POLYETHYLENE GLYCOL 3350 (17GM) 1 DOSE PACK PO SCH (08:59)
[2017-08-17 12:00] VITALS: BP 124/68
[2017-08-17] MEDS: DEXT 5%/0.45% NACL 1000ML 1,000 ML IV SCH (12:48)
[2017-08-17] MEDS ORDERED: MAGNESIUM 2 G PREMIX 50 ML IV SCH (13:00)
[2017-08-17 16:00] VITALS: BP 156/79
[2017-08-17] MEDS: HYDROCODONE/ACETAMINOPHEN 10/325MG TABLET PO PRN ×2 (16:38→22:56)
[2017-08-17 20:00] VITALS: BP 129/78
[2017-08-18] VITALS: BP 123/72
[2017-08-18] MEDS: DEXT 5%/0.45% NACL 1000ML 1,000 ML IV SCH (03:54)
[2017-08-18 04:00] VITALS: BP 138/78
[2017-08-18] MEDS: HYDRALAZINE HCL 50MG TABLET PO SCH (06:15)
[2017-08-18] MEDS: HYDROCODONE/ACETAMINOPHEN 10/325MG TABLET PO PRN ×2 (06:25→11:08)
[2017-08-18 07:24] LABS: BASOPHILS % 0.8 % (0.0-2.0); HEMATOCRIT. 25.8 % (42.0-52.0); HEMOGLOBIN. 8.7 g/dL (14.0-18.0); LYMPHOCYTES % 40.8 % (20.0-50.0); MEAN CORPUSCULAR HEMOGLOBIN 33.7 pg (28.0-32.0); MEAN PLATELET VOLUME 9.3 fl (7.4-10.4); MONOCYTES % 12.3 % (2.0-8.0); NEUTROPHILS % 45.1 % (40.0-76.0); PLATELET 139 x1000/uL (130-400); RED BLOOD CELL COUNT 2.58 mill/uL (4.7-6.1); RED CELL DISTRIBUTION WIDTH 13.4 % (11.6-14.6)
[2017-08-18 08:30] LABS: PHOSPHORUS 2.8 mg/dL (2.5-4.9)
[2017-08-18] MEDS: CITRIC ACID/SODIUM CITRATE SOLN 30ML UDC PO SCH ×3 (09:00→13:00)
[2017-08-18] MEDS: POLYETHYLENE GLYCOL 3350 (17GM) 1 DOSE PACK PO SCH ×2 (09:00→09:37)
[2017-08-18] MEDS: ALLOPURINOL 100 MG TABLET PO SCH (09:21)
[2017-08-18] MEDS: CARVEDILOL 25MG TABLET PO SCH (09:22)
[2017-08-18] MEDS: SENNOSIDES/DOCUSATE SOD 8.6/50MG TABLET PO SCH (09:23)
[2017-08-18] MEDS: NIFEDIPINE XL 60MG TAB PO SCH (09:23)
[2017-08-18] MEDS: CLONIDINE 0.1MG TABLET PO SCH (09:23)
[2017-08-18] MEDS: FAMOTIDINE 20MG TABLET PO SCH (09:23)
[2017-08-18] MEDS: METHADONE HCL 10MG TABLET PO SCH (09:24)
[2017-08-18 12:00] VITALS: BP 139/72
[2017-08-18] MEDS ORDERED: NIFE60TA7 PO (12:02)
== END 2017-08-18 13:34 | disposition home or self-care (01) | DRG 282 ==
LOC: ER 08:20 → 5WST 10:50 → ENRESERV 11:22
PROVIDERS: ADMIT Internal Medicine; ATTEND Internal Medicine
PROC: 02HV33Z Insertion of Infusion Device into Superior Vena Cava, Percutaneous Approach (ICD-10-PCS; principal; 2017-08-15)
PROC: B5181ZA Fluoroscopy of Superior Vena Cava using Low Osmolar Contrast, Guidance (ICD-10-PCS; 2017-08-15)
PROC: B548ZZA Ultrasonography of Superior Vena Cava, Guidance (ICD-10-PCS; 2017-08-15)
DX: K85.20 Alcohol induced acute pancreatitis without necrosis or infection (principal); N17.0 Acute kidney failure with tubular necrosis; I50.33 Acute on chronic diastolic (congestive) heart failure; E46 Unspecified protein-calorie malnutrition; D69.6 Thrombocytopenia, unspecified; F11.20 Opioid dependence, uncomplicated; E88.09 Other disorders of plasma-protein metabolism, not elsewhere classified; K76.0 Fatty (change of) liver, not elsewhere classified; I13.0 Hypertensive heart and chronic kidney disease with heart failure and stage 1 through stage 4 chronic kidney disease, or unspecified chronic kidney disease; E86.9 Volume depletion, unspecified; Z68.1 Body mass index [BMI] 19.9 or less, adult; D50.9 Iron deficiency anemia, unspecified; K86.0 Alcohol-induced chronic pancreatitis; N18.9 Chronic kidney disease, unspecified; B18.2 Chronic viral hepatitis C; D53.9 Nutritional anemia, unspecified; F10.188 Alcohol abuse with other alcohol-induced disorder; F17.210 Nicotine dependence, cigarettes, uncomplicated; J44.9 Chronic obstructive pulmonary disease, unspecified; K57.90 Diverticulosis of intestine, part unspecified, without perforation or abscess without bleeding; K70.9 Alcoholic liver disease, unspecified; K58.9 Irritable bowel syndrome, unspecified; Z88.6 Allergy status to analgesic agent; Z79.899 Other long term (current) drug therapy; R74.0 Nonspecific elevation of levels of transaminase and lactic acid dehydrogenase [LDH]; K59.09 Other constipation; M51.37 Other intervertebral disc degeneration, lumbosacral region
CPT/HCPCS: 36415; 36569; 71010; 74176; 76700; 76937; 77001; 80048; 80053; 80061; 80076; 80305; 81001; 82550; 83605; 83690; 83735; 83880; 83970; 84100; 84443; 84484; 85025; 85610; 85730; 93005; 96361; 96374; 96375; 99285; C1725; C1893; G0482; J0360; J2270; J2405; J2765; J3411; J3475; J3490; J7030; J7040

== ENCOUNTER 2017-08-30 04:01 | Emergency (ER) | payer MEDICAID ==
[~2017-08-30] VITALS: Ht 170.2 cm; Wt 72.0 kg
[~2017-08-30 04:01] MED LIST changes: +NIFE60TA7 PO
[2017-08-30] MEDS ORDERED: SODIUM CHLORIDE 0.9% 1,000 ML IV ONE (04:11)
[2017-08-30] MEDS ORDERED: ONDANSETRON HCL 4MG/2ML VIAL IV STA (04:20)
[2017-08-30] MEDS ORDERED: FAMOTIDINE 20MG/2ML VIAL IV STA (04:20)
[2017-08-30] MEDS ORDERED: MAGNESIUM/ALUMINUM HYDROXIDE/SIMETHICONE 30ML UDC PO STA (04:20)
[2017-08-30 04:38] LABS: BASOPHILS % 0.8 % (0.0-2.0); EOSINOPHILS % 0.3 % (0.0-5.0); HEMATOCRIT. 30.8 % (42.0-52.0); HEMOGLOBIN. 10.3 g/dL (14.0-18.0); LYMPHOCYTES % 21.8 % (20.0-50.0); MEAN CORPUSCULAR HEMOGLOBIN 34.1 pg (28.0-32.0); MEAN CORPUSCULAR VOLUME 101.4 fL (80.0-94.0); MEAN PLATELET VOLUME 8.8 fl (7.4-10.4); NEUTROPHILS % 71.1 % (40.0-76.0); PLATELET 236 x1000/uL (130-400); RED BLOOD CELL COUNT 3.04 mill/uL (4.7-6.1); RED CELL DISTRIBUTION WIDTH 14.3 % (11.6-14.6)
[2017-08-30 04:48] LABS: INR 1.1
[2017-08-30 04:58] LABS: CARBON DIOXIDE 26 mEq/L (21-32); CHLORIDE 108 mEq/L (98-107); TROPONIN I < 0.02 ng/mL (0.00-0.04)
[2017-08-30] MEDS ORDERED: DIPHENHYDRAMINE 50MG/ML VIAL IV ONE (05:45)
[2017-08-30] MEDS ORDERED: METOCLOPRAMIDE HCL 10MG/2ML VIAL IV ONE (05:45)
[2017-08-30 06:01] VITALS: BP 202/120
[2017-08-30] MEDS ORDERED: MORPHINE SULFATE 4 MG/ML CPJ (NOT FOR IM USE) IV ONE (06:15)
[2017-08-30] MEDS ORDERED: MORPHINE SULFATE 10 MG/ML CPJ IV SCH (06:18)
== END 2017-08-30 06:30 | disposition home or self-care (01) ==
LOC: ER 04:01
DX: R10.9 Unspecified abdominal pain (principal); R94.8 Abnormal results of function studies of other organs and systems; I10 Essential (primary) hypertension; F17.200 Nicotine dependence, unspecified, uncomplicated; Z91.19 Patient's noncompliance with other medical treatment and regimen
CPT/HCPCS: 36415; 71010; 80053; 83690; 84484; 85025; 85610; 93005; 96361; 96374; 96375; 99285; J1200; J2270; J2405; J2765; J3490; J7030; Z7610

== ENCOUNTER 2017-08-30 07:28 | Emergency (ER) | payer MEDICAID ==
[~2017-08-30] VITALS: Ht 170.2 cm; Wt 61.0 kg
[2017-08-30 07:33] VITALS: BP 152/102
== END 2017-08-30 08:11 | disposition left against medical advice (07) ==
LOC: ER 07:41
DX: Z53.21 Procedure and treatment not carried out due to patient leaving prior to being seen by health care provider (principal); F17.210 Nicotine dependence, cigarettes, uncomplicated

== ENCOUNTER 2017-09-26 13:58 | Emergency (ER) | payer MEDICAID ==
[~2017-09-26] VITALS: Ht 170.2 cm; Wt 55.0 kg
[2017-09-26 14:03] VITALS: BP 206/112
[2017-09-27] MEDS ORDERED: METH10TA2 PO (11:11)
== END 2017-09-26 17:29 | disposition left against medical advice (07) ==
LOC: ER 13:58
DX: Z53.21 Procedure and treatment not carried out due to patient leaving prior to being seen by health care provider (principal)
CPT/HCPCS: 93005

== ENCOUNTER 2017-09-27 02:09 | Inpatient (IN) | payer MEDICAID ==
[~2017-09-27] VITALS: Ht 170.2 cm; Wt 54.9 kg
[~2017-09-27 02:09] MED LIST changes: -NIFE60TA7 PO; +NIFE60TA77 PO
[2017-09-27] MEDS ORDERED: ONDANSETRON HCL 4MG/2ML VIAL IV STA (03:16)
[2017-09-27] MEDS ORDERED: MORPHINE SULFATE 4 MG/ML CPJ (NOT FOR IM USE) IV STA (03:16)
[2017-09-27] MEDS ORDERED: SODIUM CHLORIDE 0.9% 1,000 ML IV ONE (03:16)
[2017-09-27 03:44] LABS: BASOPHILS % 1.2 % (0.0-2.0); HEMATOCRIT. 34.8 % (42.0-52.0); HEMOGLOBIN. 11.8 g/dL (14.0-18.0); LYMPHOCYTES % 44.3 % (20.0-50.0); MEAN CORPUSCULAR HEMOGLOBIN 34.5 pg (28.0-32.0); MEAN CORPUSCULAR VOLUME 101.7 fL (80.0-94.0); MEAN PLATELET VOLUME 8.9 fl (7.4-10.4); MONOCYTES % 11.9 % (2.0-8.0); NEUTROPHILS % 41.6 % (40.0-76.0); PLATELET 177 x1000/uL (130-400); RED BLOOD CELL COUNT 3.42 mill/uL (4.7-6.1); RED CELL DISTRIBUTION WIDTH 14.3 % (11.6-14.6)
[2017-09-27 03:53] LABS: CARBON DIOXIDE 20 mEq/L (21-32); CHLORIDE 101 mEq/L (98-107); ETHANOL BLOOD < 10 mg/dL; TROPONIN I < 0.02 ng/mL (0.00-0.04)
[2017-09-27 03:55] LABS: INR 1.2; PARTIAL THROMBOPLASTIN TIME 27.8 sec (23.4-31.0); PROTHROMBIN TIME 12.7 sec (9.4-11.6)
[2017-09-27] MEDS ORDERED: MORPHINE SULFATE 10 MG/ML CPJ IV NR ×2 (04:00→05:30)
[2017-09-27] MEDS ORDERED: CEFTRIAXONE 1 G PREMIX 50 ML IV ONE (05:15)
[2017-09-27] MEDS ORDERED: ASPIRIN 81MG TABLET PO ONE (05:15)
[2017-09-27] MEDS ORDERED: MORPHINE SULFATE 4 MG/ML CPJ (NOT FOR IM USE) IV ONE (05:30)
[2017-09-27] MEDS ORDERED: HYDROMORPHONE HCL/PF 2MG/ML CPJ IV PRN (06:15)
[2017-09-27] MEDS ORDERED: HYDROCODONE/ACETAMINOPHEN 5/325MG TABLET PO PRN (06:15)
[2017-09-27] MEDS ORDERED: DIPHENHYDRAMINE 50MG/ML VIAL IV PRN (06:15)
[2017-09-27] MEDS ORDERED: IPRATROPIUM/ALBUTEROL 0.5-3(2.5)MG/3ML NEB INH PRN (06:15)
[2017-09-27] MEDS ORDERED: LORAZEPAM 2MG/ML CPJ IV PRN (06:15)
[2017-09-27] MEDS ORDERED: ACETAMINOPHEN 325MG TABLET PO PRN (06:15)
[2017-09-27] MEDS ORDERED: DOCUSATE SODIUM 100MG CAPSULE PO PRN (06:15)
[2017-09-27] MEDS ORDERED: CLONIDINE 0.1MG TABLET PO PRN (06:15)
[2017-09-27] MEDS ORDERED: MAGNESIUM/ALUMINUM HYDROXIDE/SIMETHICONE 30ML UDC PO PRN (06:15)
[2017-09-27] MEDS ORDERED: ONDANSETRON HCL 4MG/2ML VIAL IV PRN (06:15)
[2017-09-27] MEDS ORDERED: NA PHOS,M-B/NA PHOS,DI-BA ENEMA 118ML PR PRN (06:15)
[2017-09-27] MEDS ORDERED: GUAIFENESIN 200MG/10ML SUGAR FREE UDC PO PRN (06:15)
[2017-09-27 07:55] LABS: CREATINE KINASE 56 IU/L (39-308)
[2017-09-27 08:20] VITALS: BP 151/78
[2017-09-27 09:20] VITALS: BP 151/78
[2017-09-27] MEDS ORDERED: METH10TA2 PO (11:11)
[2017-09-27 12:00] VITALS: BP 166/85
[2017-09-27] MEDS: CARVEDILOL 25MG TABLET PO SCH (12:26)
[2017-09-27] MEDS: OMEPRAZOLE 20MG CAPSULE EXTENDED RELEASE PO SCH (12:26)
[2017-09-27] MEDS: ALLOPURINOL 100 MG TABLET PO SCH (12:26)
[2017-09-27] MEDS: SODIUM CHLORIDE 0.45% 1,000 ML IV SCH ×3 (12:27→21:25)
[2017-09-27] MEDS: FOLIC ACID 1MG TABLET PO SCH (12:27)
[2017-09-27] MEDS ORDERED: METHADONE HCL 10MG TABLET PO SCH (13:00)
[2017-09-27] MEDS: ENOXAPARIN 30MG/0.3ML SYR SUBCUT SCH (13:33)
[2017-09-27] MEDS: HYDRALAZINE HCL 50MG TABLET PO SCH ×2 (13:47→22:05)
[2017-09-27] MEDS: METHADONE HCL 10MG TABLET PO SCH (13:47)
[2017-09-27 16:00] VITALS: BP 138/82
[2017-09-27 20:00] VITALS: BP 122/71
[2017-09-27] MEDS: CLONIDINE 0.1MG TABLET PO SCH (22:04)
[2017-09-27] MEDS: NIFEDIPINE XL 60MG TAB PO SCH (22:05)
[2017-09-28] VITALS: BP 160/85
[2017-09-28 04:00] VITALS: BP 158/77
[2017-09-28] MEDS: SODIUM CHLORIDE 0.45% 1,000 ML IV SCH (06:04)
[2017-09-28] MEDS: HYDRALAZINE HCL 50MG TABLET PO SCH (06:14)
[2017-09-28 06:51] LABS: BASOPHILS % 0.7 % (0.0-2.0); EOSINOPHILS % 0.4 % (0.0-5.0); HEMATOCRIT. 32.2 % (42.0-52.0); HEMOGLOBIN. 10.6 g/dL (14.0-18.0); MEAN CORPUSCULAR HEMOGLOBIN 34.1 pg (28.0-32.0); MEAN CORPUSCULAR VOLUME 103.1 fL (80.0-94.0); MEAN PLATELET VOLUME 9.5 fl (7.4-10.4); MONOCYTES % 11.6 % (2.0-8.0); NEUTROPHILS % 43.3 % (40.0-76.0); PLATELET 159 x1000/uL (130-400); RED BLOOD CELL COUNT 3.12 mill/uL (4.7-6.1); RED CELL DISTRIBUTION WIDTH 14.3 % (11.6-14.6)
[2017-09-28 07:03] LABS: CARBON DIOXIDE 23 mEq/L (21-32); CHLORIDE 108 mEq/L (98-107); HDL CHOLESTEROL 51 mg/dL (40-59); LDL CHOLESTEROL 55 mg/dL (5-100); PHOSPHORUS 2.9 mg/dL (2.5-4.9); T4 FREE 1.02 ng/dL (0.76-1.46)
[2017-09-28 08:00] VITALS: BP 161/80
[2017-09-28] MEDS ORDERED: MULTIVITAMINS,THER W-MINERALS TABLET PO SCH (09:00)
[2017-09-28] MEDS: ENOXAPARIN 30MG/0.3ML SYR SUBCUT SCH ×2 (09:00→09:02)
[2017-09-28] MEDS: ALLOPURINOL 100 MG TABLET PO SCH (09:00)
[2017-09-28] MEDS: OMEPRAZOLE 20MG CAPSULE EXTENDED RELEASE PO SCH (09:00)
[2017-09-28] MEDS: FOLIC ACID 1MG TABLET PO SCH (09:00)
[2017-09-28] MEDS: CARVEDILOL 25MG TABLET PO SCH (09:00)
[2017-09-28] MEDS: METHADONE HCL 10MG TABLET PO SCH (09:01)
[2017-09-28] MEDS: CLONIDINE 0.1MG TABLET PO SCH (09:01)
[2017-09-28] MEDS: NIFEDIPINE XL 60MG TAB PO SCH (09:01)
[2017-09-28 10:23] VITALS: BP 161/80
== END 2017-09-28 10:45 | disposition home or self-care (01) | DRG 241 ==
LOC: ER 02:09 → 6WST 05:15 → EDBEDREQTM 05:21 → EDBEDREQ 05:21 → ENRESERV 07:01
PROVIDERS: ADMIT Internal Medicine; ATTEND Internal Medicine
DX: K29.70 Gastritis, unspecified, without bleeding (principal); N17.0 Acute kidney failure with tubular necrosis; E11.22 Type 2 diabetes mellitus with diabetic chronic kidney disease; E87.1 Hypo-osmolality and hyponatremia; K86.0 Alcohol-induced chronic pancreatitis; N28.1 Cyst of kidney, acquired; B18.2 Chronic viral hepatitis C; D64.9 Anemia, unspecified; D72.819 Decreased white blood cell count, unspecified; E86.0 Dehydration; F17.210 Nicotine dependence, cigarettes, uncomplicated; I12.9 Hypertensive chronic kidney disease with stage 1 through stage 4 chronic kidney disease, or unspecified chronic kidney disease; I25.10 Atherosclerotic heart disease of native coronary artery without angina pectoris; K44.9 Diaphragmatic hernia without obstruction or gangrene; K21.9 Gastro-esophageal reflux disease without esophagitis; K57.90 Diverticulosis of intestine, part unspecified, without perforation or abscess without bleeding; M48.061 Spinal stenosis, lumbar region without neurogenic claudication; M51.36 Other intervertebral disc degeneration, lumbar region; N18.9 Chronic kidney disease, unspecified; Z79.899 Other long term (current) drug therapy; F11.90 Opioid use, unspecified, uncomplicated; M10.9 Gout, unspecified
CPT/HCPCS: 36415; 71010; 74176; 76700; 80048; 80053; 80061; 82550; 83690; 83735; 84100; 84439; 84443; 84484; 85025; 85610; 85730; 86850; 86900; 93005; 96361; 96365; 96375; 96376; 99285; G0482; J0696; J1650; J2270; J2405; J7030

== ENCOUNTER 2017-10-22 06:52 | Emergency (ER) | payer MEDICAID ==
[~2017-10-22] VITALS: Ht 170.2 cm; Wt 55.0 kg
[~2017-10-22 06:52] MED LIST changes: +METH10TA2 PO; -METH40TA12 PO
[2017-10-22 08:53] LABS: BASOPHILS % 1.1 % (0.0-2.0); EOSINOPHILS % 0.2 % (0.0-5.0); HEMATOCRIT. 36.4 % (42.0-52.0); HEMOGLOBIN. 12.5 g/dL (14.0-18.0); LYMPHOCYTES % 26.5 % (20.0-50.0); MEAN CORPUSCULAR HEMOGLOBIN 35.3 pg (28.0-32.0); MEAN CORPUSCULAR VOLUME 102.4 fL (80.0-94.0); MEAN PLATELET VOLUME 9.5 fl (7.4-10.4); MONOCYTES % 6.8 % (2.0-8.0); NEUTROPHILS % 65.4 % (40.0-76.0); PLATELET 173 x1000/uL (130-400); RED BLOOD CELL COUNT 3.55 mill/uL (4.7-6.1); RED CELL DISTRIBUTION WIDTH 14.3 % (11.6-14.6)
[2017-10-22 08:56] LABS: INR 1.1; PROTHROMBIN TIME 11.4 sec (9.4-11.6)
[2017-10-22] MEDS ORDERED: MORPHINE SULFATE 4 MG/ML CPJ (NOT FOR IM USE) IV STA (09:06)
[2017-10-22] MEDS ORDERED: ONDANSETRON HCL 4MG/2ML VIAL IV STA (09:06)
[2017-10-22] MEDS ORDERED: SODIUM CHLORIDE 0.9% 1,000 ML IV ONE (09:06)
[2017-10-22 09:08] LABS: CARBON DIOXIDE 19 mEq/L (21-32); CHLORIDE 105 mEq/L (98-107); TROPONIN I < 0.02 ng/mL (0.00-0.04)
[2017-10-22 12:15] VITALS: BP 162/88
== END 2017-10-22 12:40 | disposition home or self-care (01) ==
LOC: ER 06:52
DX: R10.33 Periumbilical pain (principal); R11.2 Nausea with vomiting, unspecified; I10 Essential (primary) hypertension; M10.9 Gout, unspecified; F17.200 Nicotine dependence, unspecified, uncomplicated; N28.9 Disorder of kidney and ureter, unspecified; F19.10 Other psychoactive substance abuse, uncomplicated
CPT/HCPCS: 36415; 71010; 74176; 80053; 83690; 83880; 84484; 85025; 85610; 93005; 96361; 96374; 96375; 99285; G0482; J2270; J2405; J7030; Z7610

== ENCOUNTER 2017-11-20 05:17 | Emergency (ER) | payer MEDICAID ==
[~2017-11-20] VITALS: Ht 170.2 cm; Wt 50.0 kg
[2017-11-20] MEDS ORDERED: LACTATED RINGERS 1,000 ML IV STA (06:44)
[2017-11-20] MEDS ORDERED: MAGNESIUM/ALUMINUM HYDROXIDE/SIMETHICONE 30ML UDC PO STA (06:44)
[2017-11-20] MEDS ORDERED: ONDANSETRON HCL 4MG/2ML VIAL IV ONE (06:45)
[2017-11-20 07:38] LABS: BASOPHILS % 0.7 % (0.0-2.0); EOSINOPHILS % 0.3 % (0.0-5.0); HEMATOCRIT. 37.7 % (42.0-52.0); HEMOGLOBIN. 12.6 g/dL (14.0-18.0); LYMPHOCYTES % 28.1 % (20.0-50.0); MEAN CORPUSCULAR HEMOGLOBIN 34.1 pg (28.0-32.0); MEAN CORPUSCULAR VOLUME 102.3 fL (80.0-94.0); MEAN PLATELET VOLUME 9.6 fl (7.4-10.4); MONOCYTES % 10.4 % (2.0-8.0); NEUTROPHILS % 60.5 % (40.0-76.0); PLATELET 119 x1000/uL (130-400); RED BLOOD CELL COUNT 3.68 mill/uL (4.7-6.1); RED CELL DISTRIBUTION WIDTH 13.5 % (11.6-14.6)
[2017-11-20 07:44] LABS: INR 1.1; PROTHROMBIN TIME 11.4 sec (9.4-11.6)
[2017-11-20] MEDS ORDERED: MORPHINE SULFATE 4 MG/ML CPJ (NOT FOR IM USE) IV ONE ×2 (07:45→08:45)
[2017-11-20 08:23] LABS: PLATELET ESTIMATE SLIGHTLY DECREASED
[2017-11-20] MEDS ORDERED: MORPHINE SULFATE 10 MG/ML CPJ IM ONE (08:30)
[2017-11-20 08:34] LABS: CARBON DIOXIDE 23 mEq/L (21-32); CHLORIDE 104 mEq/L (98-107); PHOSPHORUS 3.1 mg/dL (2.5-4.9); TROPONIN I < 0.02 ng/mL (0.00-0.04)
[2017-11-20 09:03] VITALS: BP 228/107
[2017-11-20 09:52] LABS: CLARITY URINE CLEAR (CLEAR); COLOR URINE YELLOW (YELLOW); KETONES URINE NEGATIVE (NEGATIVE); LEUKOCYTE ESTERASE URINE NEGATIVE (NEGATIVE); NITRITE URINE NEGATIVE (NEGATIVE); OCCULT BLOOD URINE 1+ (NEGATIVE); PH URINE 5.5 (4.5-8.0); PROTEIN URINE 3+ (NEGATIVE); SPECIFIC GRAVITY URINE 1.014 (1.005-1.030); UROBILINOGEN URINE 0.2 E.U./dL (0.2-1.0)
[2017-11-20] MEDS ORDERED: CLONIDINE 0.1MG TABLET PO ONE (10:30)
== END 2017-11-20 13:06 | disposition left against medical advice (07) ==
LOC: ER 05:27
DX: K86.1 Other chronic pancreatitis (principal); I10 Essential (primary) hypertension; F17.200 Nicotine dependence, unspecified, uncomplicated; F11.10 Opioid abuse, uncomplicated; M10.9 Gout, unspecified
CPT/HCPCS: 36415; 71045; 74176; 80053; 81001; 83605; 83690; 83735; 84100; 84484; 85025; 85610; 93005; 96361; 96374; 96375; 99285; J2270; J2405; J7030; J7120; Z7610